=== PATIENT | female | born 1985 | race Asian ===

== ENCOUNTER 2025-03-18 05:27 | Emergency (ER) | payer BC, SELFPAY ==
[2025-03-18 05:35] VITALS: BP 101/68
[2025-03-18 05:44] VITALS: BMI 26.4
--- NOTE | 2025-03-18 06:14 | ED.GENMED ---
History of Present Illness
General
Chief Complaint: Musculo-Skeletal Complaint
Source: patient
Exam Limitations: none
Time Seen by Provider: 03/18/25 06:00
History of Present Illness
History of Present Illness:
39yo [id number] female presenting for evaluation of left shoulder pain. Pain initially started 2 weeks ago. She denies any specific trauma although recently started exercising and participating in weightlifting and yoga. Her pain
subsided after about a week but returned last night. She is having pain with range of motion, particularly abduction. She has tried Tylenol and Advil without much relief. She denies any paresthesias, chest pain, shortness of breath, fevers. She
had the flu shot on February 21 which was about 2 weeks prior to her symptoms starting and is unsure if this is related. No prior surgery/injuries to the left shoulder.
Phy Exam
General Physical Exam
General Presentation: well appearing and no apparent distress
General age: appears stated age
General Skin: warm and dry
General Habitus: normal
General Mental: alert
ENT Exam
ENT Exam: normocephalic
Pulmonary Exam
Pulmonary Exam: no respiratory distress
Neurological Exam
Neurological Exam: alert
[place] Coma Scale
Eye Opening: Spontaneous
Verbal Response: Oriented
Motor Response: Obeys Commands
GCS Total Score: 15
Musculoskeletal Exam
Musculoskeletal Exam: other (L shoulder: Normal to inspection. No tenderness to palpation of cervical/shoulder region. Abduction elicits pain. ROM decreased 2/2 pain. 2+ radial pulse. Motor and sensation intact in median, ulnar, and radial nerve
distributions. )
Skin Exam
Skin Exam: normal color and warm/dry
Psychiatric Exam
Psychiatric Exam: normal mood/affect
Course
Orders/Labs/Results
Orders:
Orders
03/18/25 06:14
Ketorolac [Toradol] 30 mg IM NOW STA
CR Shoulder - Left Min 2 View* Urgent
Comment:
Reason For Exam: pain
Vital Signs
Initial and Last Documented VS:
Initial Vital Signs
Temp Pulse Resp BP Pulse Ox
97.7 F 87 16 97
03/18/25 05:35 03/18/25 05:35 03/18/25 05:35 03/18/25 05:35 03/18/25 05:35
Last Documented Vital Signs
Temp Pulse Resp BP Pulse Ox
97.7 F 87 16 97
03/18/25 05:35 03/18/25 05:35 03/18/25 05:35 03/18/25 05:35 03/18/25 06:16
MDM/Problems Addressed
Differential Diagnosis Includes:
39yoF here with L shoulder pain x 2 weeks. Worsening since last night. No swelling or skin changes on exam. Abduction elicits pain. LUE is neurovascularly intact. Differential diagnosis includes: calcific tendonitis, osteoarthritis, rotator cuff
tendonitis, muscular strain, doubt fracture
X-rays of L shoulder obtained which are normal. IM Toradol given for pain relief. Unclear etiology of symptoms, possibly rotator cuff tendonitis. Supportive care discussed and she was advised to f/u with orthopedics. She was discharged in stable
condition.
*Pulse Oximetry
SaO2: 97
Oxygen Mode of Delivery: Room air
Patient hypoxic: no
*Critical Care Note
Total Time (30-74mins, 75-104mins- exclusive of procedures): Not Applicable
ED Attending Note
-
Portions of this chart may have been created with voice recognition software.� Occasional wrong word or��sound alike� substitutions may have occurred due to the inherent limitations of voice recognition software.
Discharge Plan
Departure
Patient Disposition: Home (Routine Discharge)
Date of Disposition: 03/18/25
Time of Disposition: 07:22
Patient with high blood pressure during this ER visit?: No
Discharge Problem:
Acute pain of left shoulder
Instructions: Muscle, joint, and bone pain (DC)
Prescriptions:
No Action
multivitamin Tablet
1 tab PO DAILY
Referrals:
Isauro Torres MD [Active, Orthopedics]
Etta Bhatia MD [Family Provider, Internal Medicine]
Stand Alone Forms: Return to Work
Activity Restrictions/Additional Instructions:
Take Tylenol 650mg and ibuprofen (Advil) 600mg every 6 hours as needed for pain. Apply heat to affected area.
Please call today to schedule a follow-up appointment with orthopedics.
Interventions
Interventions:
*Risk Screen - Suicide Last Done: 03/18/25 05:35
*Neglect/Abuse Screening Last Done: 03/18/25 05:35
*ED- Fall Risk Assessment Last Done: 03/18/25 05:35
*ED COVID-19 Vaccine History Last Done: 03/18/25 05:35
*ED Influenza Vaccine History Last Done: 03/18/25 05:35
ED-Musculoskeletal Assessment Last Done: 03/18/25 05:46
Discharge Date and Time
Print Language: [id number]
[2025-03-18] MEDS: TORADOL 30 MG IM (06:20)
[2025-03-18 07:43] VITALS: BP 126/75
== END 2025-03-18 07:46 | disposition home or self-care (01) ==
LOC: EMR 05:27
PROVIDERS: EMERGENCY PHYSICIAN Emergency Medicine; FAMILY PHYSICIAN Internal Medicine
DX: M25.512 Pain in left shoulder (principal)
CPT/HCPCS: 99284; 96372; 73030